=== PATIENT | female | born 1975 | race Caucasian/White ===

== ENCOUNTER 2022-05-25 20:41 | Emergency (ER) | payer SELFPAY ==
[~2022-05-25] VITALS: Ht 160 cm; Wt 52.2 kg
[2022-05-25 21:06] VITALS: BP_SYST 93
--- NOTE | 2022-05-25 21:08 | NUR ---
PER EMS, PATIENT WAS BROUGHT FROM [facility] AFTER SMOKING METH YESTERDAY AND FENTANYL TODAY. STATES SHE INITIALLY WAS HAVING BACK/ABDOMINAL PAIN THAT IS WHY SHE SMOKED THE DRUGS BUT CURRENTLY HAS NO PAIN AND STATES "I THINK I WAS POISONED". PATIENT STATES SHE WAS VOMITING EARLIER TODAY BUT NO EMESIS AT THIS TIME. PATIENT STATES SHE TAKES DEPAKOTE AND RISPERIDOL BUT HAS BEEN OUT OF THE MEDS FOR A FEW MONTHS. PATIENT PLACED INTO BED 6 AND PLACED ON MONITOR. PROVIDED BLANKETS FOR COMFORT.
--- NOTE | 2022-05-25 21:13 | NUR ---
JUNAID MENA [phone]
[2022-05-25] MEDS ORDERED: NACL 0.9% 2,000 ML IV ONE (21:15)
[2022-05-25 21:33] LABS: BASOPHILS % (AUTO) 0.3 % (0.0-2.0); EOSINOPHILS # (AUTO) 0.2 K/uL (0.0-0.4); EOSINOPHILS % (AUTO) 1.9 % (0.0-4.0); HEMOGLOBIN 13.3 g/dL (12.0-16.0); LYMPHOCYTES # (AUTO) 2.9 K/uL (1.0-5.5); LYMPHOCYTES % (AUTO) 24.3 % (20.5-51.5); MEAN CORPUSCULAR HEMOGLOBIN 28 pg (27-31); MEAN CORPUSCULAR HGB CONC 34 % (32-36); MEAN CORPUSCULAR VOLUME 83 fL (79.0-98.0); MONOCYTES # (AUTO) 0.7 K/uL (0.0-1.0); MONOCYTES % (AUTO) 5.8 % (1.7-9.3); NEUTROPHILS % (AUTO) 67.7 % (40.0-70.0); PLATELET COUNT (AUTO) 300 K/uL (130-430); RED BLOOD CELL COUNT(AUTO) 4.73 MIL/uL (4.2-6.2); RED CELL DISTRIBUTION WIDTH 14.9 % (9.0-15.0); WHITE BLOOD COUNT (AUTO) 11.8 K/uL (4.8-10.8)
[2022-05-25 21:39] LABS: ANION GAP 8 (5-15); CALCIUM 9.2 mg/dL (8.4-11.0); CHLORIDE 100 mmol/L (98-107); GLUCOSE 125 mg/dL (70-99); POTASSIUM 3.7 mmol/L (3.5-5.1); SODIUM SERUM 135 mmol/L (136-145); UREA NITROGEN, BLOOD 8 mg/dL (8-21)
[2022-05-25 21:40] LABS: GFR AFRICAN AMERICAN 116 mL/min (>90)
[2022-05-25 21:52] LABS: ACETAMINOPHEN < 1 ug/mL (1-30); ALANINE AMINOTRANSFERASE 40 U/L (12-78); ALBUMIN 3.5 g/dL (3.4-4.8); ALCOHOL, BLOOD < 3 mg/dL (<10); ASPARTATE AMINOTRANSFERASE 31 U/L (10-37); TOTAL BILIRUBIN 0.7 mg/dL (0.0-1.0)
[2022-05-25 22:01] LABS: ACETONE, SERUM NEGATIVE (NEGATIVE)
--- NOTE | 2022-05-25 22:10 | NUR ---
First contact. Pt presently on monitor resting with eyes closed.
[2022-05-25 22:22] LABS: BARBITURATE, URINE NEGATIVE (NEG <=200); BENZODIAZEPINE, URINE NEGATIVE (NEG <=150); CANNABINOID, URINE NEGATIVE (NEG <=50); COCAINE, URINE NEGATIVE (NEG <=150); METHAMPHETAMINES SCREEN,URINE POSITIVE (NEG <=500); OPIATE, URINE NEGATIVE (NEG <=100); PHENCYCLIDINE SCREEN,URINE NEGATIVE (NEG <=25); UR TRICYCLIC ANTIDEPRESSANTS NEGATIVE (NEG <=300); URINE AMPHETAMINE POSITIVE (NEG <=500); URINE METHADONE NEGATIVE (NEG <=200); URINE OXYCODONE SCREEN NEGATIVE (NEG <=100); URINE PROPOXYPHENE SCREEN NEGATIVE (NEG <=300)
[2022-05-25] MEDS ORDERED: MAG HYDROX/AL HYDROX/SIMETH 30 ML, LIDOCAINE VISCOUS 2% 15ML (PO) 15 ML, DICYCLOMINE HC... PO ONE ×3 (22:45)
[2022-05-25] MEDS ORDERED: NACL 0.9% 1,000 ML IV ONE (22:45)
[2022-05-25 22:50] VITALS: BP_SYST 120
[2022-05-25] MEDS ORDERED: ONDA-8 TL (23:00)
[2022-05-25] MEDS ORDERED: OMEP40CA20 PO (23:00)
[2022-05-25] MEDS ORDERED: ANT30 PO (23:00)
[2022-05-25 23:17] LABS: HCG,QUAL RESULT NEGATIVE (NEGATIVE)
[2022-05-25] MEDS ORDERED: ONDANSETRON HCL 4 MG/2 ML VIAL IVP ONE (23:30)
--- NOTE | 2022-05-25 23:45 | NUR ---
Patient given written and verbal discharge instructions and verbalizes understanding. ER MD discussed with patient the results and treatment provided. Patient in stable condition. ID arm band removed. IV catheter removed intact and dressing applied, no active bleeding. Patient educated on pain management and to follow up with PMD. Opportunity for questions provided and answered. .
== END 2022-05-25 23:45 | disposition home or self-care (01) ==
LOC: SED 20:41
DX: F19.10 Other psychoactive substance abuse, uncomplicated (principal); M54.50 Low back pain, unspecified; R11.2 Nausea with vomiting, unspecified; Z79.899 Other long term (current) drug therapy
CPT/HCPCS: 99285; 96360; 71045; 80307; 80053; 82009; 82550; 84703; 85025; 84484; 36415; 93005; G0482; J7030; G0480; G0481